=== PATIENT | male | born 1960 | race Hispanic/Latino ===

== ENCOUNTER 2023-11-23 12:06 | Emergency (ER) | payer OTHER ==
[~2023-11-23] VITALS: Ht 157.5 cm; Wt 78.5 kg
[2023-11-23] MEDS: MORPHINE 2 MG SYG IM ONE (13:15)
[2023-11-23] MEDS: KETOROLAC 30MG VIAL (30MG/ML) IM ONE (13:15)
[2023-11-23] MEDS: CEFTRIAXONE 1G VIAL IM ONE (14:41)
[2023-11-23] MEDS: LIDOCAINE HCL 1% 20 ML VIAL ONE (14:42)
[2023-11-23] MEDS: LIDOCAINE HCL 1% 20 ML VIAL INJ SCH (14:42)
[2023-11-23 14:54] VITALS: BP 137/84; PULSE 62; RESP 20; O2SAT 98
== END 2023-11-23 15:04 | disposition home or self-care (01) ==
LOC: EDH 12:06
DX: S61.216A Laceration without foreign body of right little finger without damage to nail, initial encounter (principal); W26.8XXA Contact with other sharp object(s), not elsewhere classified, initial encounter; Y93.89 Activity, other specified; Y92.89 Other specified places as the place of occurrence of the external cause; Y99.8 Other external cause status
CPT/HCPCS: 99284; 73130; 96372 ×3; 12001; J2270; J0696; J1885